=== PATIENT | male | born 2000 | race Two or more races ===

== ENCOUNTER 2021-10-25 16:17 | Emergency (ER) | payer MEDICAID ==
[~2021-10-25] VITALS: Ht 162.6 cm; Wt 54.4 kg
[2021-10-25 16:20] VITALS: BP_SYST 132
--- NOTE | 2021-10-25 16:38 | NUR ---
AFTER TRIAGING PT, PT WAS HANDED A URINE CUP FOR TESTING URINE, PT STATES HE WOULD LIKE TO LEAVE. PT LEFT WITHOUT BEING SEEN
== END 2021-10-25 16:38 | disposition left against medical advice (07) ==
LOC: SED 16:17
DX: Z00.00 Encounter for general adult medical examination without abnormal findings (principal); Z53.21 Procedure and treatment not carried out due to patient leaving prior to being seen by health care provider